=== PATIENT | female | born 1975 | race African-American/Black ===

== ENCOUNTER 2017-11-03 10:15 | Emergency (ER) | payer OTHER, MEDICAID ==
[~2017-11-03] VITALS: Ht 165.1 cm; Wt 63.5 kg
[~2017-11-03 10:15] MED LIST: CIPROFLOXACIN500 M1 PO; FLAGYL500 MG PO; HYDROCHLOROTH12.5 M1 PO; HYDROCODON-ACE1 EAC7 PO; IBUPROFEN 800800 MG PO; LEXAPRO20 MG PO; NORCO 5-325 TA1 EACH PO; PYRIDIUM200 MG PO; TRAZODONE HCL50 MG PO; TUSSIONEX PENN473 ML PO; ZOFRAN ODT4 MG PO
[2017-11-03] MEDS ORDERED: HYDROCHLOROTH12.5 M1 PO (10:47)
[2017-11-03] MEDS ORDERED: PROMETHAZINE-D118 ML PO (10:47)
[2017-11-03] MEDS ORDERED: TESSALON PERLE100 MG PO (10:47)
[2017-11-03 10:59] VITALS: BP 141/101
== END 2017-11-03 11:02 | disposition home or self-care (01) ==
LOC: M.ERS 10:15
DX: B34.9 Viral infection, unspecified (principal); I10 Essential (primary) hypertension; G43.909 Migraine, unspecified, not intractable, without status migrainosus

== ENCOUNTER 2018-02-12 21:47 | Emergency (ER) | payer OTHER, MEDICAID ==
[~2018-02-12] VITALS: Ht 152.4 cm; Wt 61.2 kg
[~2018-02-12 21:47] MED LIST changes: +PROMETHAZINE-D118 ML PO; +TESSALON PERLE100 MG PO
[2018-02-12] MEDS ORDERED: HYDROCHLOROTHIA25 M2 PO (21:56)
[2018-02-12 22:24] LABS: ABSOLUTE BASOPHILS 0.1 thou/uL (0.0-0.2); ABSOLUTE LYMPHOCYTES 2.8 thou/uL (0.8-5.3); ABSOLUTE MONOCYTES 1.2 thou/uL (0.0-1.2); ABSOLUTE NEUTROPHILS 8.3 thou/uL (1.6-8.1); BASOPHILS 0.6 %; EOSINOPHILS 0.2 %; HEMATOCRIT 40.8 % (37.0-47.0); HEMOGLOBIN 13.2 gm/dL (12.0-15.0); LYMPHOCYTES 22.6 %; MCH 27.6 pg (26.0-34.0); MCHC 32.3 g/dL (28.0-37.0); MCV 85.5 fL (80.0-100.0); MONOCYTES 9.9 %; MPV 8.5 fl. (7.2-11.1); NUCLEATED RBCS 0 /100WBC; PLATELET COUNT* 251 thou/uL (150-400); POLYS 66.7 %; RBC 4.78 mil/uL (4.20-5.00); RDW-CV 14.6 % (10.5-14.5); WBC 12.4 thou/uL (4.0-11.0)
[2018-02-12 22:28] LABS: CALCIUM 9.4 mg/dL (8.5-10.1); POTASSIUM 3.3 mmol/L (3.5-5.1)
[2018-02-12 22:33] LABS: ALBUMIN 3.8 g/dL (3.4-5.0); TOTAL BILIRUBIN 1.5 mg/dL (<0.1-1.0); TOTAL PROTEIN 8.3 g/dL (6.4-8.2)
[2018-02-12 23:01] LABS: URINE BILIRUBIN NEGATIVE (Negative); URINE BLOOD NEGATIVE (Negative); URINE CLARITY CLEAR; URINE COLOR YELLOW; URINE GLUCOSE-RANDOM NEGATIVE (Negative); URINE KETONES NEGATIVE (Negative); URINE LEUKOCYTES-REFLEX NEGATIVE (Negative); URINE NITRITE-REFLEX NEGATIVE (Negative); URINE PROTEIN NEGATIVE (Negative); URINE SPECIFIC GRAVITY 1.015 (1.005-1.030); URINE UROBILINOGEN 0.2 E.U./dl (0.2-1.0)
[2018-02-12] MEDS ORDERED: KEFLEX500 M1 PO (23:05)
[2018-02-12] MEDS ORDERED: TRAMADOL 50 MG50 MG PO (23:05)
[2018-02-12 23:16] VITALS: BP 150/98
[2018-02-12 23:30] LABS: ESR (SEDRATE) 17 mm/hr (0-20)
== END 2018-02-12 23:17 | disposition home or self-care (01) ==
LOC: M.ERS 21:47
PROVIDERS: Family Medicine; Physician Assistant
DX: R51 Headache (principal); I10 Essential (primary) hypertension; J02.9 Acute pharyngitis, unspecified

== ENCOUNTER 2019-08-11 10:20 | Emergency (ER) | payer OTHER ==
[~2019-08-11] VITALS: Ht 165.1 cm; Wt 68.0 kg
[~2019-08-11 10:20] MED LIST changes: +HYDROCHLOROTHIA25 M2 PO; +KEFLEX500 M1 PO; +TRAMADOL 50 MG50 MG PO
[2019-08-11] MEDS ORDERED: NORVASC5 M1 PO (10:29)
[2019-08-11] MEDS ORDERED: HYDROCHLOROTHIA25 M2 PO (10:29)
[2019-08-11 10:38] LABS: ABSOLUTE BASOPHILS 0.1 thou/uL (0.0-0.2); ABSOLUTE EOSINOPHILS 0.1 thou/uL (0.0-0.7); ABSOLUTE LYMPHOCYTES 1.9 thou/uL (0.8-5.3); ABSOLUTE MONOCYTES 0.5 thou/uL (0.0-1.2); ABSOLUTE NEUTROPHILS 2.9 thou/uL (1.6-8.1); BASOPHILS 1.3 %; EOSINOPHILS 1.3 %; HEMATOCRIT 41.4 % (37.0-47.0); HEMOGLOBIN 13.7 gm/dL (12.0-15.0); LYMPHOCYTES 35.4 %; MCH 27.1 pg (26.0-34.0); MCHC 33.1 g/dL (28.0-37.0); MCV 82.1 fL (80.0-100.0); MONOCYTES 9.5 %; NUCLEATED RBCS 0 /100WBC; PLATELET COUNT* 326 thou/uL (150-400); POLYS 52.5 %; RBC 5.04 mil/uL (4.20-5.00); RDW-CV 14.7 % (10.5-14.5); WBC 5.5 thou/uL (4.0-11.0)
[2019-08-11 10:46] LABS: CALCIUM 9.2 mg/dL (8.5-10.1); POTASSIUM 3.2 mmol/L (3.5-5.1)
[2019-08-11 10:51] LABS: ALBUMIN 4.1 g/dL (3.4-5.0); TOTAL PROTEIN 8.8 g/dL (6.4-8.2)
[2019-08-11] MEDS ORDERED: CLONIDINE HCL0.2 M2 PO (12:03)
[2019-08-11] MEDS ORDERED: ONDANSETRON HCL4 M2 PO (12:03)
[2019-08-11 12:28] LABS: URINE BILIRUBIN NEGATIVE (Negative); URINE BLOOD NEGATIVE (Negative); URINE CLARITY CLEAR; URINE COLOR YELLOW; URINE GLUCOSE-RANDOM NEGATIVE (Negative); URINE KETONES TRACE (Negative); URINE LEUKOCYTES-REFLEX NEGATIVE (Negative); URINE NITRITE-REFLEX NEGATIVE (Negative); URINE PROTEIN TRACE (Negative); URINE SPECIFIC GRAVITY 1.015 (1.005-1.030); URINE UROBILINOGEN 0.2 E.U./dl (0.2-1.0)
[2019-08-11 13:33] VITALS: BP 100/74
--- NOTE | 2019-08-12 09:30 | EKG ---
[place] [address] ELECTROCARDIOGRAM REPORT Name: JEFF PIÑA Room: [facility]#: [id number] Admission: 08/11/19 Attend Phys: Discharge: 08/11/19 Date of : 73 Report #: [id number] THIS REPORT FOR: //name// [facility] ED Test Date: 2019-08-11 Test Time: 10:28:45 Pat Name: JEFF PIÑA Department: Room: Gender: F Bread Baker: MALGORZATA : 1975 Requested By: Naz Anthony Order Number: [id number] MD: Rahat Kapoor Measurements Intervals [place] Rate: 80 P: 37 [place]: 155 QRS: -11 QRSD: 89 T: 10 QT: 380 QTc: 439 Interpretive Statements Sinus rhythm Left ventricular hypertrophy, by voltage Compared to ECG 07/26/2017 22:09:12 No significant changes Electronically Signed On 08-12-2019 9:30:20 INFO [employer]ESS [employer]PERATOR by Rahat Kapoor [email or web address] <ELECTRONICALLY SIGNED> By: Rahat Kapoor MD, [facility] 08/12/19 0930 D: [id number] Rahat Kapoor MD, FACC /EPI
== END 2019-08-11 13:33 | disposition home or self-care (01) ==
LOC: M.ERS 10:20
PROVIDERS: Nurse Practitioner Family
DX: I10 Essential (primary) hypertension (principal); G43.909 Migraine, unspecified, not intractable, without status migrainosus

== ENCOUNTER 2019-11-10 08:37 | Emergency (ER) | payer BC ==
[~2019-11-10] VITALS: Ht 165.1 cm; Wt 68.0 kg
[~2019-11-10 08:37] MED LIST changes: +CLONIDINE HCL0.2 M2 PO; +NORVASC5 M1 PO; +ONDANSETRON HCL4 M2 PO
[2019-11-10 09:17] LABS: INFLUENZA A ANTIGEN Negative (Negative); INFLUENZA B ANTIGEN Negative (Negative)
[2019-11-10] MEDS ORDERED: PROMETHAZINE-C473 ML PO (10:23)
[2019-11-10] MEDS ORDERED: IBUPROFEN 800800 MG PO (10:23)
[2019-11-10 10:35] VITALS: BP 140/88
== END 2019-11-10 10:41 | disposition home or self-care (01) ==
LOC: M.ERS 08:37
PROVIDERS: Personal Emergency Response Attendant
DX: B34.9 Viral infection, unspecified (principal); I10 Essential (primary) hypertension; G43.909 Migraine, unspecified, not intractable, without status migrainosus